=== PATIENT | male | born 1985 | race Caucasian/White ===

== ENCOUNTER 2017-02-26 01:05 | Emergency (ER) | payer SELFPAY ==
[~2017-02-26] VITALS: Ht 170.2 cm; Wt 62.7 kg
[2017-02-26 01:07] VITALS: BP 135/82
== END 2017-02-26 01:40 | disposition home or self-care (01) ==
LOC: ED 01:30
DX: Z00.00 Encounter for general adult medical examination without abnormal findings (principal); Z72.9 Problem related to lifestyle, unspecified
CPT/HCPCS: 99283

== ENCOUNTER 2017-06-05 05:30 | Emergency (ER) | payer SELFPAY ==
[~2017-06-05] VITALS: Ht 170.2 cm; Wt 55.5 kg
[2017-06-05] MEDS ORDERED: RISPERIDONE 2 MG TABLET ONE (05:59)
[2017-06-05] MEDS ORDERED: RISPERIDONE 2 MG TABLET PO ONE (06:00)
[2017-06-05 06:44] VITALS: BP 124/82
== END 2017-06-05 06:45 | disposition home or self-care (01) ==
LOC: ED 06:37
DX: F25.0 Schizoaffective disorder, bipolar type (principal); Z91.14 Patient's other noncompliance with medication regimen; Z76.0 Encounter for issue of repeat prescription
CPT/HCPCS: 82962; 99284

== ENCOUNTER 2019-10-13 14:09 | Emergency (ER) | payer SELFPAY ==
[~2019-10-13] VITALS: Ht 170.2 cm; Wt 70.0 kg
--- NOTE | 2019-10-13 14:27 | NUR ---
PT FOREIGN ALANIZ AFTER BEING SEEN NAKED WALKING DOWN THE STREET. PT STATES THAT HE WAS "WALKING HOME, TO [place]". PT DENIES ANY ALLERGIES EXCEPT TO "PEREZ BRISENO". PT IN BED, DRESSED IN A PAIR OF SHORTS AND A GOWN. PT COOPERATIVE. ERP AT BEDSIDE FOR EVALUATION AT THIS TIME.
--- NOTE | 2019-10-13 14:33 | NUR ---
Psych SENIOR BUSINESS ANALYST paged.
[2019-10-13 16:14] LABS: BASOPHILS # (AUTO) 0.04 x10^3/uL (0-0.1); BASOPHILS % (AUTO) 0 % (0-1); EOSINOPHILS # (AUTO) 0.09 x10^3/uL (0-0.4); EOSINOPHILS % (AUTO) 1 % (1-7); LYMPHOCYTES # (AUTO) 2.18 x10^3/uL (1-3.4); LYMPHOCYTES % (AUTO) 17 % (22-44); MD NO; MEAN CORPUSCULAR HEMOGLOBIN 28.9 pg (27.5-34.5); MEAN CORPUSCULAR HGB CONC 33.1 g/dL (33.2-36.2); MEAN CORPUSCULAR VOLUME 87.3 fL (81-97); MEAN PLATELET VOLUME 8.9 fL (7.4-10.4); MONOCYTES # (AUTO) 1.04 x10^3/uL (0.2-0.8); MONOCYTES % (AUTO) 8 % (2-9); NEUTROPHILS # (AUTO) 9.35 x10^3/uL (1.8-6.8); NEUTROPHILS % (AUTO) 74 % (42-75); PLATELET COUNT 295 x10^3/uL (130-400); RED BLOOD COUNT 5.17 x10^6/uL (4.38-5.82); RED CELL DISTRIBUTION WIDTH 13.4 % (9.4-14.8)
[2019-10-13 16:22] LABS: ALANINE AMINOTRANSFERASE 53 U/L (12-78); ALBUMIN 4.5 g/dL (3.4-5.0); ANION GAP 8 mmol/L (5-15); CALCIUM 8.4 mg/dL (8.5-10.1); CHLORIDE 111 mmol/L (98-107); CREATININE 1.09 mg/dL (0.7-1.3)
[2019-10-13 16:27] LABS: ALKALINE PHOSPHATASE 70 U/L (45-117); BILIRUBIN,TOTAL 0.7 mg/dL (0.2-1.0); SALICYLATE LEVEL 2.4 mg/dL (2.8-20.0)
[2019-10-13] MEDS: RISPERIDONE 2 MG TABLET PO SCH (17:00)
[2019-10-13] MEDS ORDERED: TRAZODONE 50MG TABLET PO PRN (17:00)
[2019-10-13] MEDS ORDERED: LORazepam 1MG TABLET PO PRN (17:00)
[2019-10-13] MEDS ORDERED: RISPERIDONE 2 MG TABLET ONE (17:44)
--- NOTE | 2019-10-13 18:03 | NUR ---
MEAL TRAY PROVIDED TO PATIENT.
--- NOTE | 2019-10-13 20:24 | NUR ---
TP: PACKET FAXED TO [facility], [facility], [facility], AND [facility]
--- NOTE | 2019-10-13 20:58 | NUR ---
TP: REFUSED BY [facility] DUE TO LACK OF INSURANCE
--- NOTE | 2019-10-14 01:57 | NUR ---
REPORT OF PT FROM LI GILMAN AND ASSUMING CARE OF PT AT THIS TIME.
--- NOTE | 2019-10-14 02:35 | NUR ---
PT IS RESTLESS AND PACING IN ROOM; PT DENIES ANY NEEDS AT THIS TIME. PT PROVIDED REFRESHMENTS PER REQUEST. SITTER OUTSIDE OF PT ROOM FOR DIRECT OBSERVATION OF PT AT THIS TIME.
[2019-10-14] MEDS ORDERED: TRAZODONE 50MG TABLET ONE (02:59)
--- NOTE | 2019-10-14 03:01 | NUR ---
PT MEDICATED PER MAY FOR INSOMNIA AT THIS TIME.
--- NOTE | 2019-10-14 04:21 | NUR ---
PT ASLEEP IN [facility] AT THIS TIME; DEEPAK. SITTER OUTSIDE OF PT ROOM FOR DIRECT OBSERVATION OF PT AT THIS TIME.
--- NOTE | 2019-10-14 05:47 | NUR ---
pt asleep in [facility] at this time; scooter. sitter outside of pt room for direct observation of pt.
--- NOTE | 2019-10-14 06:48 | NUR ---
PT ASLEEP IN [facility] AT THIS TIME; DEEPAK. SITTER OUTSIDE OF PT ROOM FOR DIRECT OBSERVATION OF PT.
--- NOTE | 2019-10-14 07:42 | NUR ---
REPORT RECEIVED FROM KRUPA JEFFERSON. PT SLEEPING IN BED, NO DISTESS. SITTER REMAINS AT BEDSIDE, ROOM REMAINS SECURED. MEAL TRAYS ORDERED. CONT TO MONITOR.
--- NOTE | 2019-10-14 08:47 | NUR ---
PT MED REQUESTED FROM PHARMACY. PT GIVEN MEAL TRAY. PT CALM AND COOPERATIVE AT THIS TIME. SITTER AT BEDSIDE, ROOM REMAINS SECURED. CONT TO MONITOR.
[2019-10-14] MEDS: RISPERIDONE 2 MG TABLET PO SCH (09:00)
--- NOTE | 2019-10-14 10:10 | NUR ---
REPORT FROM LI HERNANDEZ
--- NOTE | 2019-10-14 10:13 | NUR ---
REPORT GIVEN TO BELEM JEFFERSON.
--- NOTE | 2019-10-14 10:15 | NUR ---
PT AWAKE/ALERT, REQUESTING PO FLUIDS WHICH WERE PROVIDED. PT POLITE, CALM, AND COOPERATIVE. ROOM SECURE AND SITTER PRESENT. PT WITH PANTS ON HOWEVER IS KNOWN TO MASTERBATE AND THIS OFFERS A SAFE DETERRENT FOR UNPLEASANT BEHAVIOR.
--- NOTE | 2019-10-14 11:00 | NUR ---
PT PLACED ON HOSPITAL BED. VS WNL. PT REMAINS CALM AND COOPERATIVE. PT A&OX4, DENIES PAIN. STATES THAT HE "WALKS AROUND TOWN NAKED OR GOES TO [employer] THEN DOESN'T PAY SO THAT THEY WILL TAKE ME BACK TO INTERMEDIATE". PT AGREES THAT THIS IS MANIPULATIVE BEHAVIOR AND THAT USE OF COMMUNITY RESOURCES MAY DISCOURAGE THIS IN THE FUTURE. LUNCH TRAY ORDERED. SITTER PRESENT. ROOM REMAINS SECURE.
--- NOTE | 2019-10-14 12:08 | NUR ---
PT PROVIDED AN SI APPROPRIATE MEAL TRAY.
--- NOTE | 2019-10-14 13:09 | NUR ---
REPORT RECEIVED FROM LI PATRICIA. [facility].
--- NOTE | 2019-10-14 14:58 | NUR ---
PT RESTING COMFORTABLY IN HOSPITAL BED.
--- NOTE | 2019-10-14 18:07 | NUR ---
MEAL TRAY PROVIDED
--- NOTE | 2019-10-14 18:55 | NUR ---
Report received from LI Aguilar. This RN to assume care.
--- NOTE | 2019-10-14 20:06 | NUR ---
Patient sleeping in hospital bed. Respirations even and unlabored. Room secured, belongings in locked cabinet, sitter outside.
--- NOTE | 2019-10-14 20:57 | NUR ---
Need urine from patient. Advised patient; he states he will try.
--- NOTE | 2019-10-14 21:30 | NUR ---
Patient states he is unable to provide urine at this time. Patient resting in hospital bed with no complaints. Room secure, belongings in locked cabinet, sitter outside.
--- NOTE | 2019-10-14 22:25 | NUR ---
Patient sleeping in hospital bed. Respirations even and unlabored. Room secured, belongings in locked cabinet, sitter outside.
--- NOTE | 2019-10-14 22:30 | NUR ---
Patient provided urine; sent to lab.
[2019-10-14 22:51] LABS: AMPHETAMINE SCREEN, URINE Negative (Negative); BARBITURATE SCREEN, URINE Negative (Negative); BENZODIAZEPINE SCREEN, URINE Negative (Negative); CANNABINOID SCREEN, URINE Negative (Negative); COCAINE SCREEN, URINE Negative (Negative); METHADONE SCREEN, URINE Negative (Negative); OPIATE SCREEN, URINE Negative (Negative)
--- NOTE | 2019-10-14 23:40 | NUR ---
Patient sleeping in hospital bed. Respirations even and unlabored. Room secured, belongings in locked cabinet, sitter outside.
--- NOTE | 2019-10-14 23:45 | NUR ---
Patient's drugs of abuse just resulted at this time. Packet was already faxed out without this so refaxed packet. Currently insurance is "self pay pending eligibility" so packet only faxed to [facility] at this time. Conformation received and placed with packet.
--- NOTE | 2019-10-14 23:51 | NUR ---
REPORT TAKEN FROM OFFGOING RN.
--- NOTE | 2019-10-15 | NUR ---
PATIENT RESTING IN BED, NO NOTED NEEDS AT THIS TIME. SITTER IN VIEW OF PATIENT. WILL CONITNUE TO MONITOR.
--- NOTE | 2019-10-15 01:05 | NUR ---
PATIENT RESTING IN BED, NO NOTED NEEDS AT THIS TIME. SITTER IN VIEW OF PATIENT. WILL CONITNUE TO MONITOR.
--- NOTE | 2019-10-15 01:16 | NUR ---
BREAK RN: PT LAYING IN BED, SLEEPING, RESPIRATIONS EVEN AND UNLABORED. PT IN VIEW OF SITTER.
--- NOTE | 2019-10-15 02:09 | NUR ---
PATIENT RESTING IN BED, NO NOTED NEEDS AT THIS TIME. SITTER IN VIEW OF PATIENT. WILL CONITNUE TO MONITOR.
--- NOTE | 2019-10-15 03:10 | NUR ---
PATIENT RESTING IN BED, NO NOTED NEEDS AT THIS TIME. SITTER IN VIEW OF PATIENT. WILL CONITNUE TO MONITOR.
--- NOTE | 2019-10-15 04:22 | NUR ---
PATIENT RESTING IN BED, NO NOTED NEEDS AT THIS TIME. SITTER IN VIEW OF PATIENT. WILL CONITNUE TO MONITOR.
--- NOTE | 2019-10-15 04:51 | NUR ---
REPORT GIVEN TO LI GENTILE
--- NOTE | 2019-10-15 04:59 | NUR ---
REPORT OF PT FROM LI MAYORGA AND ASSUMING CARE OF PT AT THIS TIME. PT IS ASLEEP IN [facility] WITH EQUAL BILATERAL RISE AND FALL OF CHEST NOTED; NADN. SITTER OUTSIDE OF PT ROOM FOR DIRECT OBSERVATION OF PT AT THIS TIME.
--- NOTE | 2019-10-15 06:13 | NUR ---
PT ASLEEP IN [facility] AT THIS TIME; DEEPAK. SITTER OUTSIDE OF PT ROOM FOR DIRECT OBSERVATION OF PT. MEAL TRAY ORDERED FOR PT BREAKFAST AT THIS TIME.
--- NOTE | 2019-10-15 07:10 | NUR ---
Report recieved from Kiran JEFFERSON. Safety precautions in place.
[2019-10-15 07:47] VITALS: BP 105/56
--- NOTE | 2019-10-15 08:09 | NUR ---
Meal provided Safety precautions in place
--- NOTE | 2019-10-15 08:45 | NUR ---
Pt ran out/eloped from ED. internal wholesaler, security, and [employer] notified. no belongings were present on admit.
[2019-10-15] MEDS ORDERED: RISPERIDONE 1 MG TABLET PO SCH (09:00)
[2019-10-15] MEDS ORDERED: RISPERIDONE 2 MG TABLET PO SCH (21:00)
== END 2019-10-15 08:51 | disposition left against medical advice (07) ==
LOC: ED 14:14
DX: F20.1 Disorganized schizophrenia (principal)
CPT/HCPCS: 36415; 80053; 80307; 85025; 99284